=== PATIENT | female | born 1950 | race Caucasian/White ===

== ENCOUNTER 2021-08-02 01:41 | Inpatient (IN) | payer MEDICARE ==
[~2021-08-02] VITALS: Ht 157.5 cm; Wt 75.0 kg
[~2021-08-02 01:41] MED LIST: CLON.1 PO; DULO60 PO; MONT10T PO; MORP60ER PO; Mobic15 MG PO; ONDA8 PO; OXYB5ER PO; OXYC30 PO; Omeprazole20 M1 PO
[2021-08-02 01:59] LABS: BASOPHILS ABSOLUTE AUTO 0.03 K/mm3 (0.00-0.23); BASOPHILS PERCENT AUTO 0 % (0-2); EOSINOPHILS ABSOLUTE AUTO 0.01 K/mm3 (0.00-0.68); EOSINOPHILS PERCENT AUTO 0 % (0-6); Hematocrit 47.4 % (33.0-51.0); Hemoglobin 14.6 g/dL (11.5-16.0); IMMATURE GRAN ABSOLUTE AUTO 0.16 K/mm3 (0.00-0.10); IMMATURE GRAN PERCENT AUTO 2 % (0-1); LYMPHOCYTES ABSOLUTE AUTO 1.35 K/mm3 (0.84-5.20); LYMPHOCYTES PERCENT AUTO 12 % (21-46); MONOCYTES ABSOLUTE AUTO 0.52 K/mm3 (0.16-1.47); MONOCYTES PERCENT AUTO 5 % (4-13); Mean Corpuscular HGB 30.8 pg (26.0-34.0); Mean Corpuscular HGB Conc 30.8 g/dL (31.5-36.5); Mean Corpuscular Volume 100 fL (80-100); Mean Platelet Volume 12.4 fL (9.1-12.4); NEUTROPHILS ABSOLUTE AUTO 8.78 K/mm3 (1.96-9.15); NEUTROPHILS PERCENT AUTO 81 % (41-73); Platelet Count 142 K/mm3 (150-400); RDW Coefficient Variation 17.5 % (11.7-14.2); RDW Standard Deviation 66.2 fL (35.1-46.3); Red Blood Cell Count 4.74 M/mm3 (3.80-5.20); White Blood Cell Count 10.85 K/mm3 (4.00-11.30)
[2021-08-02 02:00] LABS: Calcium, Ionized (POC) 1.18 mmol/L (1.10-1.46); Chloride (POC) 110 mmol/L (98-108); Creatinine (POC) 2.1 mg/dL (0.6-1.0); Glucose (ISTAT POC) 147 mg/dL (70-99); Potassium (POC) 4.7 mmol/L (3.5-5.5); Sodium (POC) 139 mmol/L (135-148); Total CO2 (POC) 16 mmol/L (21-32)
[2021-08-02 02:14] LABS: Ethanol (Alcohol), Blood, Med <3 mg/dL
[2021-08-02 02:15] LABS: International Normalized Ratio 1.14; Prothrombin Time Results 11.9 Sec (9.7-11.5)
[2021-08-02 02:18] LABS: PCO2 Arterial 36.9 mmHg (35-45); PO2 Arterial 284 mmHg (80-100); pH Blood Arterial 6.99 (7.35-7.45)
[2021-08-02 03:24] LABS: Albumin/Globulin Ratio 1.2 (0.8-1.8); Bilirubin, Total 0.8 mg/dL (0.1-1.0); Bun/Creatinine Ratio 14.1 (12.0-20.0); Calcium, Blood 9.2 mg/dL (8.5-10.1); Creatinine, Blood 1.99 mg/dL (0.40-1.00); Globulin, Blood 3.4 g/dL (2.2-4.0); Potassium, Blood 4.9 mmol/L (3.5-5.5); Total Protein, Blood 7.4 g/dL (6.4-8.2)
--- NOTE | 2021-08-02 05:19 | NUR ---
DR MOMIN AT BEDSIDE
--- NOTE | 2021-08-02 06:56 | NUR ---
HYPOTHERMIA PROTOCOL INITIATED W/ZOLL RIGHT FEMORAL LINE; SET AT 96.8.
[2021-08-02 07:45] LABS: Source, Urine Foley catheter
[2021-08-02 07:48] LABS: Appearance, Urine Cloudy (Clear); Bilirubin, Urine Neg (Neg); Blood, Urine 5+ (Neg); Color, Urine Yellow (P-Yellow); Glucose Qualitative, Urine Neg (Neg); Ketones, Urine 1+ (Neg); Leukocyte Esterase, Urine 1+ (Neg); Nitrite, Urine Neg (Neg); Protein, Urine 3+ (Neg); Specific Gravity, Urine 1.025 (1.003-1.022); Urobilinogen, Urine 1+ (Normal)
[2021-08-02 08:00] LABS: Bacteria Many /hpf; Red Blood Cells, Urine 50-100 /hpf (0-2); Squamous Epithelial Cells Many /hpf (Few)
[2021-08-02 08:01] LABS: Amorphous Mod (0-Heavy); Granular Casts 0-2 /lpf (0); Renal Epithelial Few /hpf (0-Rare); Transitional Epithelial Cells Few /hpf (0-Rare)
[2021-08-02 08:17] LABS: U Amphetamine Screen Not Detected; U Barbituate Screen Not Detected; U Benzodiazapine Screen Not Detected; U Cannabinoids Screen DETECTED; U Cocaine Screen Not Detected; U Methamphetamine Screen Not Detected
[2021-08-02 08:18] LABS: U Buprenorphine Screen DETECTED; U Methadone Screen Not Detected; U Opiates Screen Not Detected; U Oxycodone Screen Not Detected; U Phencyclidine Screen Not Detected; U Propoxyphene Screen Not Detected
[2021-08-02 08:38] LABS: BASOPHILS ABSOLUTE AUTO 0.02 K/mm3 (0.00-0.23); BASOPHILS PERCENT AUTO 0 % (0-2); EOSINOPHILS PERCENT AUTO 0 % (0-6); Hematocrit 43.1 % (33.0-51.0); Hemoglobin 13.6 g/dL (11.5-16.0); IMMATURE GRAN ABSOLUTE AUTO 0.09 K/mm3 (0.00-0.10); IMMATURE GRAN PERCENT AUTO 1 % (0-1); LYMPHOCYTES ABSOLUTE AUTO 0.81 K/mm3 (0.84-5.20); LYMPHOCYTES PERCENT AUTO 5 % (21-46); MONOCYTES ABSOLUTE AUTO 1.06 K/mm3 (0.16-1.47); MONOCYTES PERCENT AUTO 7 % (4-13); Mean Corpuscular HGB 29.9 pg (26.0-34.0); Mean Corpuscular HGB Conc 31.6 g/dL (31.5-36.5); Mean Platelet Volume 12.4 fL (9.1-12.4); NEUTROPHILS ABSOLUTE AUTO 13.91 K/mm3 (1.96-9.15); NEUTROPHILS PERCENT AUTO 88 % (41-73); Platelet Count 149 K/mm3 (150-400); RDW Coefficient Variation 17.9 % (11.7-14.2); RDW Standard Deviation 62.4 fL (35.1-46.3); Red Blood Cell Count 4.55 M/mm3 (3.80-5.20); White Blood Cell Count 15.89 K/mm3 (4.00-11.30)
[2021-08-02 08:43] LABS: PCO2 Arterial 34.1 mmHg (35-45); PO2 Arterial 375 mmHg (80-100); pH Blood Arterial 7.27 (7.35-7.45)
[2021-08-02 08:44] LABS: Mean Corpuscular Volume 95 fL (80-100)
[2021-08-02 09:03] LABS: Albumin, Blood 3.4 g/dL (3.4-5.0); Albumin/Globulin Ratio 1.2 (0.8-1.8); Bilirubin, Total 1.4 mg/dL (0.1-1.0); Bun/Creatinine Ratio 14.6 (12.0-20.0); Calcium, Blood 7.7 mg/dL (8.5-10.1); Creatinine, Blood 2.33 mg/dL (0.40-1.00); Globulin, Blood 2.9 g/dL (2.2-4.0); Potassium, Blood 5.4 mmol/L (3.5-5.5); Total Protein, Blood 6.3 g/dL (6.4-8.2)
--- NOTE | 2021-08-02 09:43 | NUR ---
CARE OF PT ASSUMED AT 0700. PT ON [facility] VENT POST CADIAC ARREST. PT IN MINIMALLY RESPONSIVE. VERSED AT GTT 1.5MG/HR, LEVOPHED AT 5MCG, BICARB GTT AT 100CC/HR. PT DOES NOT RESPOND TO PAIN. ABSENT GAG,SWALLOW. PT HAS COUGH WHEN SUCTIONED, PT SUCKLES ON ORAL CARE. PT HAS ABSENT PLANTAR. PT BREATHS OVER THE VENT AT TIMES. PUPILS 3/3MM SLUGGISH. CYNOTIC/PURPLE/DUSKY FEET AND HANDS. MOTTLING TO ELBOWS AND SCATTERED MOTTLING TO LEGS. POOR PERIPHERAL PERFUSION OVERALL. PT IS ON COOLING PROTOCOL W GOAL TEMP 96.8; OCC SHIVERS. COOLING VIA COOLING CATH TO R FEM. DR VALNECIA AT BEDSIDE THIS AM. PT IN AFIB W COMPETING JUNCTIONAL RHTHYM RATE 50-80. LEVOPHED INITIALLY INCREASED TO 8MCG AT 0720, THEN DECREASED TO 3MCG AT 0745, THEN STOPPED AT 0900 (DR JAVED AWARE). BP IS STABLE WITH SOME WIDENED PULSE PRESSURES. PT IS ALSO BRADYCARDIC AT TIMES BUT THIS OULD BE D/T COOLING. PT DOES APPEAR TO HAVE DECEREBRATE POSTURING, ALTHOUGH KNEES TO OCC INTERNALLY ROTATE. DR ANNA IN AT 0950, FULL UPDATE GIVEN. DR ANNA ABLE TO ELICIT PAINFUL REPSONSE. DR NAYLOR AT BEDSIDE WELL, UPDATE GIVEN.
--- NOTE | 2021-08-02 10:50 | NUR ---
Echocardiogram using 0.50ml of Definity contrast performed.
--- NOTE | 2021-08-02 11:56 | NUR ---
PT GAGGING/COUGHING ON VENT, STACKING ON VENT. ARMS MOVING UP TOWARDS HEAD W STRENGTH. EYES FLUTTER OPEN BRIEFLY. PT DOES NOT FOLLOW COMMANDS. PT HYPERTENSIVE. DR ANNA AT BEDSIDE. VERSED INCREASED TO 5MG/HR, TO BE DC'D AND REPLACED W PROPOFOL. RESTRAINTS PLACED AT 1200.
[2021-08-02 13:31] LABS: Creatine Kinase MB 176.1 ng/mL (0.0-3.6); Creatine Kinase MB Index 1.5 (0.0-4.0)
--- NOTE | 2021-08-02 13:48 | NUR ---
CRITICAL HIGH TROPONIN CALLED TO DR VALENCIA. DR VALENCIA ALSO UPDATED ON RHTHYM. APPEARS TO BE JUNCTIONAL AT TIMES W RATE MID TO HIGH 40'S. EKG ORDERED. DR VALENCIA WILL BE BY TO SEE PT
--- NOTE | 2021-08-02 14:44 | NUR ---
Patient is minimally responsive and so I provide supportive encouraging language and a generic prayer. Patient shows no changes.
--- NOTE | 2021-08-02 15:42 | NUR ---
DR VALENCIA IN TO SEE PT. EKG GIVEN. STAT K+ AND MAG ORDERED.
[2021-08-02 15:56] LABS: Magnesium, Blood 2.3 mg/dL (1.6-2.4); Potassium, Blood 5.2 mmol/L (3.5-5.5)
--- NOTE | 2021-08-02 17:47 | NUR ---
PT HAS AN INCREASE IN ECTOPY, WITH AN INCREASE IN PVC'S, 3 BEAT RUN OF VT X 2. DR VALNECIA CALLED AND UPDATED. 1GM MAG ORDERED. DR ANNA NOTIFIED WELL INCLUDING UPDATE OF LABS.
--- NOTE | 2021-08-02 18:25 | NUR ---
RIGHT CENTRAL LINE WITH CONSTANT STEADY OOZE DISPITE DRSG CHANGE W JOS AND PRESSURE HELD. OOZING HAS BECOME WORSE WITH HEP GTT. DRSG CHANGED AGAIN WITH JOS. FEMSTOP PLACED W LIGHT PRESSURE/TENSION, DISC NOT INFLATED. DR ANNA NOTIFED. MAG 1GM STARTED. PT CONTINUES TO HAVE ECTOPY WITH 3-5BEAT RUN'S OF VT. DR ANNA AWARE.
--- NOTE | 2021-08-02 19:42 | NUR ---
ASSUMPTION OF CARE PT IS INTUBATED, ETT INTACT AND PATENT TO VENTILATOR. BREATH SOUNDS PRESENT BILATERALLY. VENT SETTINGS RATE 18 TV 420 FIO2 50% PEEP. PT SEDATED ON PROPOFOL, MINIMALLY RESPONSIVE-WILL RESPOND TO PAINFUL STIMULI. SR ON THE MONITOR W/FREQUENT ECTOPY AND RHYTHM CHANGES REPORTED TODAY. PAN SHOVER AWARE-NO FURTHER INTERVENTIONS, PT IS DNR-MD HAS DISCUSSED WITH FAMILY. BP WNL AT THIS TIME. LEVOPHED ON HOLD. HEPARIN GTT ON HOLD WELL PER PHARMACY ORDER. PROPOFOL AT 20MCGS/KG/HR. BICARB GTT AT 100ML/HR INFUSING WELL. FEM STOP ON PT RIGHT GROIN CVL SITE FROM BLEEDING EARLIER IN THE DAY. NO BLEEDING NOTED AT THIS TIME. HANDS AND FEET EXTREMELY CYANOTIC-MD AWARE. DIFUSE MOTTLING PRESENT WELL. PT HAS NO PEDAL PULSES AND FAINT RADIAL PULSES. PENA CATH INTACT PATENT AND DRAINING CONCENTRATED URINE BELOW THE LEVEL OF THE BLADDER-LOW URINE OUTPUT; MD AWARE. ZOLL HYPOTHERMIA UNIT IN USE PER MD ORDER.
--- NOTE | 2021-08-02 20:02 | NUR ---
PT SISTER AT BEDSIDE. UPDATED ON PT CONDITION/PROGNOSIS. VOICES APPRECIATION FOR CARE GIVEN.
--- NOTE | 2021-08-02 23:11 | NUR ---
PT BP MAP <65-LEVOPHED RESTARTED PER MD ORDER WILL TITRATE TO EFFECT.
[2021-08-02 23:56] LABS: Creatine Kinase MB 282.1 ng/mL (0.0-3.6); Creatine Kinase MB Index 1.4 (0.0-4.0)
--- NOTE | 2021-08-03 00:37 | NUR ---
PT IS UP TO 12MCGS LEVO TO KEEP MAP>65. SPOKE TO DR ANNA. ORDER FOR VASOPRESSIN GIVEN. WILL ADMINISTER PER ORDER WHEN AVAILABLE FROM PHARMACY.
--- NOTE | 2021-08-03 01:36 | NUR ---
PT BP CONTINUES TO DROP. VASOPRESSIN GTT STARTED. LEVOPHED INFUSING AT 12MCGS/MIN.
[2021-08-03 02:19] LABS: Hematocrit 38.5 % (33.0-51.0); Hemoglobin 12.9 g/dL (11.5-16.0); Mean Corpuscular HGB 30.9 pg (26.0-34.0); Mean Corpuscular HGB Conc 33.5 g/dL (31.5-36.5); Mean Corpuscular Volume 92 fL (80-100); Mean Platelet Volume 12.3 fL (9.1-12.4); Platelet Count 122 K/mm3 (150-400); RDW Coefficient Variation 17.8 % (11.7-14.2); RDW Standard Deviation 61.1 fL (35.1-46.3); Red Blood Cell Count 4.17 M/mm3 (3.80-5.20); White Blood Cell Count 15.38 K/mm3 (4.00-11.30)
[2021-08-03 02:36] LABS: Albumin, Blood 3.2 g/dL (3.4-5.0); Albumin/Globulin Ratio 1.1 (0.8-1.8); Bilirubin, Total 1.5 mg/dL (0.1-1.0); Bun/Creatinine Ratio 15.8 (12.0-20.0); Calcium, Blood 7.5 mg/dL (8.5-10.1); Creatinine, Blood 3.1 mg/dL (0.40-1.00); Globulin, Blood 2.8 g/dL (2.2-4.0); Magnesium, Blood 2.2 mg/dL (1.6-2.4); Potassium, Blood 4.7 mmol/L (3.5-5.5)
--- NOTE | 2021-08-03 07:51 | NUR ---
CARE ASSUMED OF PT AT 0700. PT SEDATED ON PROPOFOL AT 20MCG FOR MECH VENT. PT IS ON PRESSORS THIS AM. LEVOPHED AT 10MCG AND INCREASED TO 15MCG TO KEEP MAP >65. VASOPRESSIN INFUSING. HEPARIN GTT AT 11UNITS/KG/HR. PT COUGHS TO PAIN. PT HAS GAG. ABSENT PULSES TO BILAT PT/DP WAS YESTERDAY. CYANOTIC TOES AND FINGERS. POOR PERIPHERAL PERFUSION. MOTTLING TO BLE AND ARMS. WILL TURN OFF PROPOFOL FOR SED VAC THIS AM. PT DOES HAVE OCC FINE JERKING MOVEMENTS.
--- NOTE | 2021-08-03 09:10 | NUR ---
LEVOPHED HAS BEEN TITRATED UP TO 30MCG FOR MAP <60. PT WAS REWARMED STARTING AT 0700, BUT ONLY BY ONE DEGREE. DESPITE SETTING GOAL AT 97.8 PT'S TEMP INCREASED TO 98.9. GOAL TEMP LOWERED TO 97.1, DR ANNA AWARE. NEOSYNEPHRINE ORDERED BUT HAS NOT BEEN STARTED YET. PT'S FAMILY UPDATED. DR ANNA AT BEDSIDE AND GIVEN FULL UPDATE. DR ANNA TO SPEAK WITH PT'S DAUGHTER SHORTLY.
--- NOTE | 2021-08-03 09:56 | NUR ---
MAP 48. DR ANNA AT BEDSIDE. NEOSYNEPHRINE STARTED AT 100MCG.
--- NOTE | 2021-08-03 10:21 | NUR ---
DR ANNA SPOKE WITH PT'S DAUGHTER AND SIBLINGS. PT IS NOW COMFORT CARE STATUS. RT NOTIFIED.
--- NOTE | 2021-08-03 10:49 | NUR ---
PT EXTUBATED AT 1045, GTT'S THEN TURNED OFF, MS 5MG AND ATIVAN 1MG GIVEN PT WAS GASPING POST EXTUBATION. FAMILY AT BEDSIDE.
--- NOTE | 2021-08-03 11:41 | NUR ---
NOTIFIED BY FAMILY AND MEDIA PRODUCTION SUPPORT MANAGER THAT PT APPEARS TO BE IN PAIN. PT BREATHING VERY LABORED AND LOUD, INCREASED SECRETIONS, GRIMACING. MS GIVEN, ATROPINE GTTS GIVEN. PT REPOSITIONED.
--- NOTE | 2021-08-03 13:53 | NUR ---
Met with family at bedside. Covered pt with quilt. Family very appreciative. Pt appears relaxed, eyes closed, resp even & unlabored. NI Arias at bedside.
--- NOTE | 2021-08-03 14:10 | NUR ---
Spiritual care visit conducted. Patient is extubated minutes prior to my visit with family in pt's rm. Their immediate request was for prayer, which I gladly provide. I then talk with family about the pt, her life, her personality and the anticipatory grief they are currently experiencing. I provide therapeutic listening and calming presence and several short visits throughout the day. Family are processing the situation tearfully but appropriately. Family exhibit signs of being comforted by spiritual care. I will continue to remain available.
--- NOTE | 2021-08-03 16:49 | NUR ---
PT ARRIVED TO THE MEDICAL FLOOR FROM THE ICU VIA BED. THE PT IS UNRESPONSIVE AT THIS TIME. THE PT APPEARS TO BE COMFORTABLE
--- NOTE | 2021-08-03 17:15 | NUR ---
PT HAS GRIMICE AND LABORED BREATHING, MEDICATED THE PT PER FAMILY REQUEST FOR PAIN
--- NOTE | 2021-08-03 17:50 | NUR ---
REPORT GIVEN TO SARAH HICKS RN. PT TRANSFERED AT 1600. PT APPEARED COMFORTABLE AT TIME OF TRANSFER, FAMILY FOLLOWED PT UP TO NEW ROOM.
--- NOTE | 2021-08-03 18:48 | NUR ---
MEDICATED THE PT FOR PAIN THE FAMILY REQUESTED. PT APPEARS COMFORTABLE, MULTIPLE FAMILY AT THE BEDSIDE
--- NOTE | 2021-08-04 02:54 | NUR ---
FAMILY REQUESTING PAIN MEDICATION Q30M ORDERED TO ENSURE MAXIMUM COMFORT. THIS RN ADMINISTERING PER REQUEST.
--- NOTE | 2021-08-04 02:55 | NUR ---
CONTINUING TO PROVIDE PAIN MEDICATION PER FAMILY REQUEST.
== END 2021-08-03 23:00 | DRG 314 ==
LOC: ER 01:41 → ICUW 03:44 → MEDS 08-03 16:15
PROVIDERS: Internal Medicine; Internal Medicine Cardiovascular Disease; Student in an Organized Health Care Education/Training Program; ADMIT Internal Medicine
PROC: 5A1945Z Respiratory Ventilation, 24-96 Consecutive Hours (ICD-10-PCS; principal; 2021-08-02)
PROC: 3E033XZ Introduction of Vasopressor into Peripheral Vein, Percutaneous Approach (ICD-10-PCS; 2021-08-02)
PROC: 5A2204Z Restoration of Cardiac Rhythm, Single (ICD-10-PCS; 2021-08-02)
DX: I51.81 Takotsubo syndrome (principal); J96.90 Respiratory failure, unspecified, unspecified whether with hypoxia or hypercapnia; N17.9 Acute kidney failure, unspecified; E87.2 Acidosis; G93.1 Anoxic brain damage, not elsewhere classified; I47.2 Ventricular tachycardia; Z66 Do not resuscitate; Z51.5 Encounter for palliative care; I46.9 Cardiac arrest, cause unspecified; I45.10 Unspecified right bundle-branch block; I95.9 Hypotension, unspecified; I48.0 Paroxysmal atrial fibrillation; R77.8 Other specified abnormalities of plasma proteins; I50.9 Heart failure, unspecified; Z88.5 Allergy status to narcotic agent; Z88.8 Allergy status to other drugs, medicaments and biological substances; Z79.899 Other long term (current) drug therapy; Z79.82 Long term (current) use of aspirin; Z79.02 Long term (current) use of antithrombotics/antiplatelets
CPT/HCPCS: 31720; 36556; 36600; 51702; 70450; 71045; 80047; 80053; 81001; 82550; 82553; 82803; 83690; 83735; 83880; 84132; 84484; 85014; 85025; 85027; 85520; 85610; 85730; 87086; 92950; 93005; 93010; 94002; 94003; 96365; 96375; 99285-25; A9270; C8929; C9113; G0480; J0282; J1644; J2060; J2250; J2270; J2370; J2543; J2704; J3475; J7030; J7040; J7060; Q9957